=== PATIENT | female | born 1990 | race Caucasian/White ===

== ENCOUNTER 2024-01-22 05:49 | Emergency (ER) | payer OTHER, SELFPAY ==
[2024-01-22 05:50] VITALS: BP 124/82
--- NOTE | 2024-01-22 06:23 | ED.GENMED ---
History of Present Illness
General
Chief Complaint: Abdominal Symptoms
Source: patient
Exam Limitations: none
Time Seen by Provider: 01/22/24 05:58
History of Present Illness
History of Present Illness:
Patient had dental work done 2 days ago. Yesterday developed a headache. Generally the top of her head. She apparently gets headaches frequently. Headache was gradual in onset. However this morning she woke up with nausea vomiting diarrhea and
general headache. No photophobia no fever. Some crampy abdominal pain. People at work are ill with a GI bug. No antibiotics. No travel history.
Past History
Past History
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
Review of Systems
Review of Systems
All Other Systems: Not applicable
Constitutional: Denies fever
Respiratory: Reports no symptoms
Cardiac: Reports no symptoms
: Reports no symptoms
Phy Exam
Physical Exam
Physical Exam:
GENERAL: Alert and oriented in no apparent distress
EYE: Orbits normal.
NECK: Supple, no adenopathy. Nontender.
ENT: Pharynx without erythema
CARDIAC: Regular rate and rhythm without any obvious murmurs.
LUNGS: Clear breath sounds,normal
ABDOMEN: Soft, bowel sounds present. Reproducible right lower quadrant and reproducible epigastric tenderness. No rebound or guarding no mass or hernia
NEUROLOGICAL: Alert and oriented , grossly non-focal
SKIN: Warm and dry, no rash or lesion, no discoloration, skin intact.
MUSCULOSKELETAL: No edema,no deformity.Good color
PSYCH: Normal and appropriate interaction.
Course
Orders/Labs/Results
Orders:
Orders
01/22/24 06:21
CT Abd/Pel (IV only)-[facility] only Urgent
Comment:
Reason For Exam: Abdominal pain/vomiting. Right lower quadrant/epi
IV Insert/Care/Rem.- Treatment PRN
0.9% Sodium Chloride 1000 ml [Nss] 1,000 ml IV BOLUS
Ketorolac [Toradol] 15 mg IV NOW STA
Ondansetron Injectable [Zofran] 4 mg IV NOW STA
Test Result ONCE
01/22/24 06:22
CT Head W/o Iv Contrast Urgent
Comment:
Reason For Exam: Headache/vomiting
Norovirus by PCR Urgent
GILES Source: Feces/Stool
Specimen Description:
01/22/24 06:25
Complete Blood Count/With Diff Urgent
Comprehensive Metabolic Panel Urgent
HCG, Serum Qualitative Screen Urgent
Lipase Urgent
Abnormal Lab Results
01/22/24
06:25
Absolute Neuts (auto) 7.2 H 10^3/uL
(1.4-6.5)
Lymphocytes % 20.4 L %
(20.5-51.1)
01/22/24 06:25
01/22/24 06:25
Vital Signs
Initial and Last Documented VS:
Initial Vital Signs
Temp Pulse Resp BP Pulse Ox
97.8 F 64 16 124/82 98
01/22/24 05:50 01/22/24 05:50 01/22/24 05:50 01/22/24 05:50 01/22/24 05:50
Last Documented Vital Signs
Temp Pulse Resp BP Pulse Ox
97.8 F 62 16 115/70 99
01/22/24 05:50 01/22/24 07:21 01/22/24 07:21 01/22/24 07:21 01/22/24 07:21
MDM/Problems Addressed
Differential Diagnosis Includes:
Patient with headache abdominal pain nausea vomiting diarrhea. Doubt this has anything to do with her dental work. Her teeth appear well. There is no sign of any intraoral abscess swelling or issues. Would be more suspicious of something related
to her coworkers being ill with a GI bug. However with the abdominal tenderness warrant CT scan to rule out surgical issue. In with a headache which is somewhat unusual feel a CT of the head is warranted. Symptomatic treatment. Fluids. Nausea
meds.
*Pulse Oximetry
Patient hypoxic: no
*Critical Care Note
Total Time (30-74mins, 75-104mins- exclusive of procedures): Not Applicable
Update Note
Update Note:
Nausea has resolved. Workup is stable. Headache moderately improved. Nothing to support meningitis. Likely viral and related to coworkers that are also ill with a similar illness. Discharged to follow-up
ED Attending Note
-
Portions of this chart may have been created with voice recognition software.� Occasional wrong word or��sound alike� substitutions may have occurred due to the inherent limitations of voice recognition software.
Discharge Plan
Departure
Patient Disposition: Home (Routine Discharge)
Date of Disposition: 01/22/24
Time of Disposition: 09:15
Patient with high blood pressure during this ER visit?: No
Discharge Problem:
Nausea vomiting diarrhea headache, Suspect viral syndrome
Instructions: Diarrhea in teens and adults, Nausea and Vomiting, Adult (DC), Headache, Adult ED
Prescriptions:
New
ondansetron HCl 4 mg tablet
4 mg PO Q8H 4 Days Qty: 12 0RF
No Action
fluoxetine [Prozac] 10 mg Tablet
10 mg PO DAILY
Referrals:
Megha Amato, [Family Provider] - Follow up in 2-3 days
Activity Restrictions/Additional Instructions:
Zofran for nausea. Prescription was sent to your pharmacy
Advil or Motrin for headaches or aches. You could also take Tylenol
Recheck with progression of symptoms or if symptoms have not resolved in 1 to 2 days
Interventions
Interventions:
*Risk Screen - Suicide Last Done: 01/22/24 05:50
*Neglect/Abuse Screening Last Done: 01/22/24 05:50
ED- Fall Risk Assessment Last Done: 01/22/24 07:06
*ED COVID-19 Vaccine History Last Done: 01/22/24 05:50
LS-Ntlldz-Inbikhhylr Assessment Last Done: 01/22/24 07:06
Discharge Date and Time
Print Language: BURUNDIAN
[2024-01-22] MEDS: NSS 1000 IV (06:29)
[2024-01-22] MEDS: ZOFRAN 4 MG IV (06:29)
[2024-01-22] MEDS: TORADOL 15 MG IV (06:29)
[2024-01-22 06:38] LABS: % Basophils 0.5 % (0-2); % Eosinophils 1.4 % (0-6); % Immature Granulocytes 0.3 % (0-0.5); % Lymphocytes 20.4 % (20.5-51.1); % Neutrophils 71.4 % (42.2-75.2); Absolute Basophils 0.1 10^3/uL (0-0.2); Absolute Eosinophils 0.1 10^3/uL (0-0.7); Absolute Monocytes 0.6 10^3/uL (0.1-0.6); Absolute Neutrophils 7.2 10^3/uL (1.4-6.5); Hematocrit 38.7 % (37.0-47.0); Hemoglobin 13.6 g/dL (12.0-16.0); Mean Corp Hgb Conc. 35.1 g/dL (33.0-37.0); Mean Corpuscular Hgb 30.4 pg (27.0-31.0); Mean Corpuscular Volume 86.6 fL (81.0-99.0); Mean Platelet Volume 10.1 fL (7.4-10.4); Nucleated Red Blood Cells % 0 %; Platelet Count 267 10^3/uL (130-400); Red Blood Cell Count 4.47 10^6/uL (4.20-5.40); Red Cell Dist. Width 12.2 % (11.5-14.5)
[2024-01-22 06:54] LABS: HCG, Serum Qualitative Screen Negative
[2024-01-22 06:55] LABS: ALT (SGPT) 16 U/L (0-35); AST (SGOT) 20 U/L (14-36); Albumin 4.1 g/dl (3.5-5.0); Alkaline Phosphatase 60 U/L (38-126); Blood Urea Nitrogen 9 mg/dl (7-17); Calcium 9.3 mg/dl (8.4-10.2); Carbon Dioxide 26 mmol/L (22-30); Chloride 105 mmol/L (98-107); Glucose 97 mg/dl (70-99); Lipase 53 U/L (23-300); Potassium 3.9 mmol/L (3.5-5.1); Sodium 138 mmol/L (135-145); Total Bilirubin 0.4 mg/dl (0.2-1.3); Total Protein 6.3 g/dl (6.3-8.2); eGFR > 60.00
[2024-01-22 07:21] VITALS: BP 115/70
[2024-01-22] MEDS: TYLENOL 1000 MG PO (09:29)
== END 2024-01-22 09:32 | disposition home or self-care (01) ==
LOC: EMR 05:49
PROVIDERS: EMERGENCY PHYSICIAN Emergency Medicine; FAMILY PHYSICIAN Family Medicine
DX: R11.2 Nausea with vomiting, unspecified (principal); R19.7 Diarrhea, unspecified; R51.9 Headache, unspecified
CPT/HCPCS: 99284; 96374; 96375; 96361; 70450; 74177; 80053; 83690; 84703; 85025; Q9967

== ENCOUNTER 2024-07-04 10:27 | Emergency (ER) | payer OTHER, SELFPAY ==
[2024-07-04 10:56] VITALS: BP 118/83
--- NOTE | 2024-07-04 11:00 | ED.GENMED ---
ED Provider Triage
<Nila Rojas SALES PLANNING COORDINATOR - Last Filed: 07/04/24 11:02>
-
Patient seen by provider in Triage?: Seen in Triage
Attestation: A medical screening examination has been initiated by a qualified medical provider. Based on the assessment performed at this time, it has been determined that an emergent medical condition may exist and the patient has been informed
that further medical evaluation and possible additional diagnostic testing may be needed.
HPI: 34-year-old female states about 3 days ago she developed nausea and diarrhea, within 24 hours she developed right lower quadrant abdominal pain, she went to urgent care today and they sent her here to rule out appendicitis. Denies fever or
chills. Last diarrhea stool was 3 hours ago. Feels nauseous now. Right lower quadrant pain now 4/10.
GENERAL: Alert , in no apparent distress
EYE: No visual abnormalities.
NECK: Trachea midline
ENT: No visible abnormalities.
LUNGS: No acute respiratory distress
NEUROLOGICAL: Alert and oriented
SKIN: Skin intact. No visible changes.
MUSCULOSKELETAL: Moving extremities normally
PSYCH: Normal and appropriate interaction.
This is a medical evaluation conducted in person to initiate diagnostic evaluation and provide initial therapeutics. Please see further documentation by the treating clinician.
History of Present Illness
<Nila Rojas SALES PLANNING COORDINATOR - Last Filed: 07/04/24 11:02>
General
Chief Complaint: Abdominal Pain
Time Seen by Provider: 07/04/24 13:05
<Nichole Yao PA-C - Last Filed: 07/04/24 16:17>
General
Source: patient
Exam Limitations: none
Nursing documentation reviewed up to this point in time: agreed with
History of Present Illness
History of Present Illness:
34 Y.O F
sent from for evla RLQ pain
says 4 days ago she had n/v/d
then since then has had occasional vomiting and occasional diarrhea
last episode tdiarrhea was this am
has tried imodium
last vomit was 2 days ago
but the pain was presumed from olikely viral illness but when it persisted she decided to go to today
has had occasional chills, no known fever
no bloody stool
has had colonoscopy in the past due to colon cancer famiy history
has had polypectomy, benign
Past History
<Nila Rojas SALES PLANNING COORDINATOR - Last Filed: 07/04/24 11:02>
Past History
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
<Nichole Yao PA-C - Last Filed: 07/04/24 16:17>
Past History
ED Past Medical History: Other (colon polyp)
Social History
Tobacco: Non-smoker
Alcohol: None
Review of Systems
<Nichole Yao PA-C - Last Filed: 07/04/24 16:17>
Review of Systems
Allergies reviewed?: Yes
All Other Systems: Not applicable
Phy Exam
<Nichole Yao PA-C - Last Filed: 07/04/24 16:17>
Physical Exam
Physical Exam:
GENERAL: Alert , in no apparent distress
EYE: pupils equal and reactive
NECK: Supple
ENT: o/p clr, mmm.
CARDIAC: Regular rate and rhythm .
LUNGS: Clear breath sounds bilaterally, no acute respiratory distress, no wheezes/rales/rhonchi
ABDOMEN: Soft, mild RLQ tendreness, no r/g, no cvat, normal bowel sounds
NEUROLOGICAL: Alert and oriented, no focal neuro deficits
SKIN: Warm and dry, skin intact.
MUSCULOSKELETAL: No edema, well perfused.
PSYCH: Normal and appropriate interaction.
Course
<Nila V. Day, SALES PLANNING COORDINATOR - Last Filed: 07/04/24 11:02>
Orders/Labs/Results
Orders:
Orders
07/04/24 11:00
Norovirus by PCR Urgent
GILES Source: Feces/Stool
Specimen Description:
Date Specimen was Collected: 07/04/24
Time Specimen was Collected: 11:00
Test Result ONCE
07/04/24 11:10
Complete Blood Count/With Diff Urgent
Comprehensive Metabolic Panel Urgent
HCG, Serum Qualitative Screen Urgent
Lipase Urgent
07/04/24 11:11
STOOL [C difficile Antigen & Toxins] Urgent
GILES Source: Feces/Stool
Specimen Description:
Date Specimen was Collected: 07/04/24
Time Specimen was Collected: 11:11
Stool Culture Urgent
GILES Source: Feces/Stool
Specimen Description:
Date Specimen was Collected: 07/04/24
Time Specimen was Collected: 11:11
07/04/24 12:29
Iohexol [Omnipaque] 50 ml .ROUTE .STK-MED ONE
Iohexol [Omnipaque] See Protocol PO NOW STA
07/04/24 13:38
Ketorolac [Toradol] 30 mg IV NOW STA
Ondansetron Injectable [Zofran] 4 mg IV NOW STA
07/04/24 14:01
CT Abd/pel W Iv And Oral Contr Urgent
Comment:
Reason For Exam: rlq pain after n'/v/d 4 day ago
Abnormal Lab Results
07/04/24
11:10
Glucose 108 H mg/dl
(70-99)
07/04/24 11:10
07/04/24 11:10
Vital Signs
Initial and Last Documented VS:
Initial Vital Signs
Temp Pulse Resp BP Pulse Ox
36.9 C 93 16 118/83 97
07/04/24 10:56 07/04/24 10:56 07/04/24 10:56 07/04/24 10:56 07/04/24 10:56
Last Documented Vital Signs
Temp Pulse Resp BP Pulse Ox
36.7 C 86 18 112/80 99
07/04/24 12:54 07/04/24 16:00 07/04/24 16:00 07/04/24 16:00 07/04/24 16:00
<Nichole Yao PA-C - Last Filed: 07/04/24 16:17>
Orders/Labs/Results
Orders:
Orders
07/04/24 11:00
Norovirus by PCR Urgent
GILES Source: Feces/Stool
Specimen Description:
Date Specimen was Collected: 07/04/24
Time Specimen was Collected: 11:00
Test Result ONCE
07/04/24 11:10
Complete Blood Count/With Diff Urgent
Comprehensive Metabolic Panel Urgent
HCG, Serum Qualitative Screen Urgent
Lipase Urgent
07/04/24 11:11
STOOL [C difficile Antigen & Toxins] Urgent
GILES Source: Feces/Stool
Specimen Description:
Date Specimen was Collected: 07/04/24
Time Specimen was Collected: 11:11
Stool Culture Urgent
GILES Source: Feces/Stool
Specimen Description:
Date Specimen was Collected: 07/04/24
Time Specimen was Collected: 11:11
07/04/24 12:29
Iohexol [Omnipaque] 50 ml .ROUTE .STK-MED ONE
Iohexol [Omnipaque] See Protocol PO NOW STA
07/04/24 13:38
Ketorolac [Toradol] 30 mg IV NOW STA
Ondansetron Injectable [Zofran] 4 mg IV NOW STA
07/04/24 14:01
CT Abd/pel W Iv And Oral Contr Urgent
Comment:
Reason For Exam: rlq pain after n'/v/d 4 day ago
Abnormal Lab Results
07/04/24
11:10
Glucose 108 H mg/dl
(70-99)
07/04/24 11:10
07/04/24 11:10
Vital Signs
Initial and Last Documented VS:
Initial Vital Signs
Temp Pulse Resp BP Pulse Ox
36.9 C 93 16 118/83 97
07/04/24 10:56 07/04/24 10:56 07/04/24 10:56 07/04/24 10:56 07/04/24 10:56
Last Documented Vital Signs
Temp Pulse Resp BP Pulse Ox
36.7 C 86 18 112/80 99
07/04/24 12:54 07/04/24 16:00 07/04/24 16:00 07/04/24 16:00 07/04/24 16:00
<Nichole Yao PA-C - Last Filed: 07/04/24 16:17>
MDM/Problems Addressed
Differential Diagnosis Includes:
appe ,colitis, mesenteric adenitits
MDM/Problems Addressed:
34-year-old female sent over from urgent care for right lower quadrant pain in the setting of a recent nausea vomiting diarrhea illness. Patient has had an occasional vomiting and diarrhea over the past 24 hours. She last had an episode of
diarrhea this morning. The pain was persistent so she went to the urgent care who sent her in for an appendicitis workup. Patient has not had any bloody stool. She has felt feverish but did not take her temperature recently.
She has not had any history of irritable bowel or inflammatory bowel disease. Patient has had colonoscopies due to family history of colon cancer and has not had a polypectomy but otherwise no findings of colitis. On exam the patient is
comfortable, nontoxic, stable vitals, with focal right lower quadrant tenderness, mild without guarding or rebound. Her white count is normal and her CT shows a focal segment of mild inflammation in the terminal ileum and normal appendix. Patient
was informed of this finding. It is likely viral in nature. She may need a more formal workup for inflammatory bowel disease if it continues. She was unable to give stool sample here. Motrin, brat diet, follow-up GI
<Nichole Yao PA-C - Last Filed: 07/04/24 16:17>
*Critical Care Note
Total Time (30-74mins, 75-104mins- exclusive of procedures): Not Applicable
ED Attending Note
<Nila Rojas SALES PLANNING COORDINATOR - Last Filed: 07/04/24 11:02>
-
Portions of this chart may have been created with voice recognition software.� Occasional wrong word or��sound alike� substitutions may have occurred due to the inherent limitations of voice recognition software.
Discharge Plan
Departure
Patient Disposition: Home (Routine Discharge)
Date of Disposition: 07/04/24
Time of Disposition: 15:35
Patient with high blood pressure during this ER visit?: No
Condition: Fair
Discharge Problem:
Ileitis
Instructions: Diarrhea in teens and adults
Prescriptions:
No Action
fluoxetine [Prozac] 10 mg Tablet
10 mg PO DAILY
ondansetron HCl 4 mg tablet
4 mg PO Q8H 4 Days Qty: 12 0RF
Referrals:
NAFISA TY [Other]
Ba Menendez DO [Active] - Follow up in 1 week (GI)
Stand Alone Forms: Return to Work
Activity Restrictions/Additional Instructions:
YOUR CAT SCAN SHOWS SOME MILD INLFAMMATION IN YOUR RIGHT LOWER ABDOMEN BUT YOUR APPENDIX IS NORMAL
WE USUALLY SEE THIS TYPE OF INFLAMMATION DURING VIRAL ILLLNESSES
TRY THE BRAT DIET (BANANAS, RICE, APPLESAUCE, TOAST)
TAKE MOTRIN FOR PAIN NEEDED
YOU SHOULD FOLLOW UP WITH GI AN OUTPAITNET IF THIS PAIN PERSISTS
YOU MAY NEED A COLONOSCOPY
RETURN FOR: BLOODY DIARRHEA, HIGH FEVER, CONTINUED DIARRHEA, SEVERE PAIN OR ANY CONCERNS.
Interventions
Interventions:
*Risk Screen - Suicide Last Done: 07/04/24 10:56
*General Assessment Last Done: 07/04/24 13:17
*Neglect/Abuse Screening Last Done: 07/04/24 13:17
ED- Fall Risk Assessment Last Done: 07/04/24 14:08
*ED COVID-19 Vaccine History Last Done: 07/04/24 13:17
*Nursing Disposition Last Done: 07/04/24 16:00
VD-Kpysmj-Uystaxzgdn Assessment Last Done: 07/04/24 14:06
Discharge Date and Time
Discharge Date/Time: 07/04/24 16:03
Print Language: CYMRO
[2024-07-04 11:26] LABS: % Basophils 0.3 % (0-2); % Eosinophils 1.2 % (0-6); % Immature Granulocytes 0.3 % (0-0.5); % Monocytes 4.6 % (1.7-9.3); % Neutrophils 71.6 % (42.2-75.2); Absolute Eosinophils 0.1 10^3/uL (0-0.7); Absolute Monocytes 0.4 10^3/uL (0.1-0.6); Absolute Neutrophils 6.4 10^3/uL (1.4-6.5); Hematocrit 41.2 % (37.0-47.0); Hemoglobin 13.7 g/dL (12.0-16.0); Mean Corp Hgb Conc. 33.3 g/dL (33.0-37.0); Mean Corpuscular Hgb 30.3 pg (27.0-31.0); Mean Corpuscular Volume 91.2 fL (81.0-99.0); Mean Platelet Volume 9.6 fL (7.4-10.4); Nucleated Red Blood Cells % 0 %; Platelet Count 274 10^3/uL (130-400); Red Blood Cell Count 4.52 10^6/uL (4.20-5.40); Red Cell Dist. Width 12.1 % (11.5-14.5); White Blood Cell Count 8.9 10^3/uL (4.8-10.8)
[2024-07-04 11:49] LABS: HCG, Serum Qualitative Screen Negative
[2024-07-04 11:52] LABS: ALT (SGPT) 28 U/L (0-35); AST (SGOT) 23 U/L (14-36); Albumin 4.3 g/dl (3.5-5.0); Alkaline Phosphatase 54 U/L (38-126); Blood Urea Nitrogen 8 mg/dl (7-17); Calcium 8.9 mg/dl (8.4-10.2); Carbon Dioxide 27 mmol/L (22-30); Chloride 104 mmol/L (98-107); Glucose 108 mg/dl (70-99); Lipase 45 U/L (23-300); Potassium 4.4 mmol/L (3.5-5.1); Sodium 137 mmol/L (135-145); Total Bilirubin 0.5 mg/dl (0.2-1.3); Total Protein 6.7 g/dl (6.3-8.2); eGFR > 60.00
[2024-07-04 12:30] VITALS: BP 105/74
[2024-07-04] MEDS: OMNIPAQUE 50 ML PO (12:30)
[2024-07-04 12:54] VITALS: BP 111/74
[2024-07-04] MEDS: TORADOL 30 MG IV (13:49)
[2024-07-04] MEDS: ZOFRAN 4 MG IV (13:49)
[2024-07-04 16:00] VITALS: BP 112/80
== END 2024-07-04 16:03 | disposition home or self-care (01) ==
LOC: EMR 10:27
PROVIDERS: Emergency Medicine; EMERGENCY PHYSICIAN Student in an Organized Health Care Education/Training Program
DX: K52.9 Noninfective gastroenteritis and colitis, unspecified (principal); Z80.0 Family history of malignant neoplasm of digestive organs; Z86.0100 Personal history of colon polyps, unspecified
CPT/HCPCS: 99284; 96374; 96375; 74177; 80053; 83690; 84703; 85025; Q9967

== ENCOUNTER 2025-03-12 06:21 | Emergency (ER) | payer BC, SELFPAY ==
[2025-03-12 06:24] VITALS: BP 142/90
--- NOTE | 2025-03-12 06:50 | ED.GENMED ---
History of Present Illness
General
Chief Complaint: Cold/Flu/URI Symptoms
Source: patient
Time Seen by Provider: 03/12/25 06:30
History of Present Illness
History of Present Illness:
34-year-old female with no significant past medical history presenting to the emergency department for evaluation of cold/flulike symptoms over the last 2 days including cough, sinus congestion, sore throat, headache, generalized malaise, body aches
and subjective fever. No known sick contacts, recent travel or recent antibiotic. Patient has been taking DayQuil with minimal relief, did not take anything yet today. States she does have a history of pneumonia in the past. Social history
noncontributory. No other concerns presently.
Past History
Past History
ED Past Medical History: Other (colon polyp)
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
Social History
Tobacco: Non-smoker
Alcohol: None
Drug: None
Living: with family
Review of Systems
Review of Systems
All Other Systems: ROS reviewed and negative except as documented in HPI and ROS
Phy Exam
Physical Exam
Physical Exam:
GENERAL: Alert , in no apparent distress
HEAD: Normocephalic atraumatic
EYE: conjunctiva clear
NECK: Supple, no significant adenopathy.
ENT: o/p clr, mmm. TMs clear bilateral, no tonsillar edema or exudates, no uvular deviation, no stridor or trismus
CARDIAC: Regular rate and rhythm
LUNGS: Clear breath sounds bilaterally, no acute respiratory distress, no wheezes/rales/rhonchi
NEUROLOGICAL: Alert and oriented
SKIN: Warm and dry, skin intact.
MUSCULOSKELETAL: well perfused.
PSYCH: Normal and appropriate interaction.
Scores
Heart Failure Risk
Heart Failure Risk Score: Not Applicable
Heart Score for Chest Pain Patients
STEMI patient?: Not applicable
Withdrawal Assessment of Alcohol
Withdrawal Assessment Completed?: Not applicable
Sepsis
Sepsis Screening
Sepsis Assessment: Sepsis Ruled Out
Sepsis Screen
Sepsis Screen: Sepsis Ruled Out
Date: 03/12/25
Time: 13:59
Course
Orders/Labs/Results
Orders:
Orders
03/12/25 06:31
CR Chest - 2 Views Urgent
Comment:
Reason For Exam: cough, URI like symptoms
03/12/25 06:50
Ibuprofen [Motrin] 600 mg PO NOW STA
03/12/25 06:54
COVID-19 Antigen Urgent
Source: Nasal Swab
03/12/25 06:56
Influenza A+B Rapid Molecular Urgent
GILES Source: Nasal Swab
Specimen Description:
Vital Signs
Initial and Last Documented VS:
Initial Vital Signs
Temp Pulse Resp BP Pulse Ox
97.8 F 84 22 142/90 97
03/12/25 06:24 03/12/25 06:24 03/12/25 06:24 03/12/25 06:24 03/12/25 06:24
Last Documented Vital Signs
Temp Pulse Resp BP Pulse Ox
97.8 F 84 22 142/90 97
03/12/25 06:24 03/12/25 06:24 03/12/25 06:24 03/12/25 06:24 03/12/25 06:52
MDM/Problems Addressed
Differential Diagnosis Includes:
COVID/flu
Viral syndrome
Sinusitis
Otitis media
Pneumonia
MDM/Problems Addressed:
34-year-old female presenting to the ER for evaluation of cold/flulike symptoms that been ongoing for the last 2 days. Afebrile here, no medications taken today, patient hemodynamically stable. Overall I suspect viral etiology to be the most
likely diagnosis. Will check a COVID and flu swab. Chest x-ray ordered. Motrin ordered for symptom relief.
*Radiology
Radiology exam reviewed: preliminary read by ED provider (Normal chest x-ray)
*Pulse Oximetry
SaO2: 97
Oxygen Mode of Delivery: Room air
Patient hypoxic: no
*Critical Care Note
Total Time (30-74mins, 75-104mins- exclusive of procedures): Not Applicable
Patient Management
Escalation/DeEscalation of care consider admission/obs:
COVID and flu testing is negative. Patient remains stable. Okay to be discharged home, can use fywv-ojk-zygvyit medications as needed.
ED Attending Note
-
Portions of this chart may have been created with voice recognition software.� Occasional wrong word or��sound alike� substitutions may have occurred due to the inherent limitations of voice recognition software.
Discharge Plan
Departure
Patient Disposition: Home (Routine Discharge)
Date of Disposition: 03/12/25
Time of Disposition: 07:46
Patient with high blood pressure during this ER visit?: Yes
Discharge Problem:
Upper respiratory infection
Instructions: Viral Upper Respiratory Infection, Adult (DC)
Prescriptions:
No Action
fluoxetine [Prozac] 10 mg Tablet
10 mg PO DAILY
ondansetron HCl 4 mg tablet
4 mg PO Q8H 4 Days Qty: 12 0RF
Referrals:
Megha Amato DO [Family Provider, Family Practice]
Stand Alone Forms: Return to Work
Interventions
Interventions:
*Risk Screen - Suicide Last Done: 03/12/25 06:24
*Neglect/Abuse Screening Last Done: 03/12/25 06:24
*Nursing Disposition Last Done: 03/12/25 09:12
Discharge Date and Time
Discharge Date/Time: 03/12/25 07:50
Print Language: MARSHALLESE
[2025-03-12] MEDS: MOTRIN 600 MG PO (06:53)
[2025-03-12 07:43] LABS: COVID-19 Antigen Negative (Negative)
== END 2025-03-12 07:50 | disposition home or self-care (01) ==
LOC: EMR 06:21
PROVIDERS: Physician Assistant Medical; EMERGENCY PHYSICIAN Emergency Medicine; FAMILY PHYSICIAN Family Medicine
DX: J06.9 Acute upper respiratory infection, unspecified (principal); R03.0 Elevated blood-pressure reading, without diagnosis of hypertension; Z87.01 Personal history of pneumonia (recurrent)
CPT/HCPCS: 99284; 71046; 87502; 87811